=== PATIENT | female | born 1985 | race Caucasian/White ===

== ENCOUNTER → 2018-02-20 11:57 | Outpatient (CLI) | payer OTHER, SELFPAY ==
[2018-02-24 19:47] LABS: Progesterone 13.9 ng/mL
[2018-02-25 20:57] LABS: HCG Quantitative /Beta subunit 18.67 mIU/mL
== END ==
PROVIDERS: PCP Obstetrics & Gynecology; Visit Provider Obstetrics & Gynecology
DX: N96 Recurrent pregnancy loss (principal); N91.2 Amenorrhea, unspecified
CPT/HCPCS: 36415; 84144; 84702

== ENCOUNTER → 2018-02-23 12:46 | Outpatient (CLI) | payer OTHER, SELFPAY ==
[2018-02-25 20:57] LABS: HCG Quantitative /Beta subunit 103.61 mIU/mL
== END ==
PROVIDERS: PCP Obstetrics & Gynecology; Visit Provider Obstetrics & Gynecology
DX: N96 Recurrent pregnancy loss (principal); N91.2 Amenorrhea, unspecified
CPT/HCPCS: 36415; 84702

== ENCOUNTER → 2018-02-27 08:32 | Outpatient (CLI) | payer OTHER, SELFPAY ==
[2018-02-27 08:37] LABS: Bacteria Urine None Seen; RBC Urine None Seen (0-5/HPF); WBC Urine None Seen (0-5/HPF)
[2018-02-27 09:01] LABS: Appearance Urine UA CLEAR; Bilirubin Urine UA NEGATIVE (NEGATIVE); Color Urine UA YELLOW; Glucose Urine UA NEGATIVE (Normal); Ketones Urine UA 1+ (NEGATIVE); Leukocyte Esterase Urine UA NEGATIVE (NEGATIVE); Nitrite Urine UA Negative (Negative); Occult Blood Urine UA NEGATIVE (Negative); Protein Urine UA NEGATIVE (Negative); Urobilinogen Urine UA 0.2 E.U./dL (0.2)
[2018-02-27 09:06] LABS: Add Manual Diff / Slide Review NO; Basophils Percent Auto 0.9 % (0-2); Eosinophils Percent Auto 2.2 % (2-4); Hemoglobin 15.9 g/dL (12.0-16.0); Lymphocytes Percent Auto 37.5 % (25-40); Mean Corpuscular HGB Conc 33.9 % (30-36); Mean Corpuscular Hemoglobin 29.8 PG (26-34); Monocytes Percent Auto 6.9 % (3-14); Neutrophils Absolute Auto 3600 /uL (3000-5900); Neutrophils Percent Auto 52.5 % (50-75); Platelet Count 194 X10^3/uL (150-400); Red Blood Cell Count 5.34 X10^6/uL (4.0-5.2); Red Cell Distribution Width 13.3 % (11.6-14.8)
[2018-02-27 09:09] LABS: Culture Indicated Urine Cult Not Indicated; Urine Comments Microscopic Normal
[2018-02-27 10:07] LABS: HCG Quantitative /Beta subunit 699.35 mIU/mL
[2018-02-27 10:22] LABS: Hepatitis B Surface Antigen NEGATIVE s/c (NEGATIVE); Rubella Antibody IgG 60.3 IU/mL (>15)
[2018-02-28 16:15] LABS: Progesterone 21.6 ng/mL
[2018-03-06 11:06] LABS: Rapid Plasma Reagin NON REACTIVE
== END ==
PROVIDERS: PCP Obstetrics & Gynecology; Visit Provider Obstetrics & Gynecology
DX: Z34.91 Encounter for supervision of normal pregnancy, unspecified, first trimester (principal); N96 Recurrent pregnancy loss
CPT/HCPCS: 36415; 80055; 81001; 84144; 84702; 86787; 86850; 86900; 86901

== ENCOUNTER → 2018-03-11 08:44 | Outpatient (CLI) | payer OTHER, SELFPAY ==
--- NOTE | 2018-03-11 08:45 | DI.US.S_ITS ---
PROCEDURE: US OB <= 14 WEEKS FETUS INDICATIONS: DATES OUTSIDE/PRIOR DATING DATA: Last menstrual period (LMP): 01/25/2018. LMP-based estimated date of delivery (FARZANA): 11/01/2018. First dating scan (date and location): This exam. Estimated date of delivery (FARZANA) from first dating scan: 11/05/18. TECHNIQUE: Real-time scanning was performed of the fetus and maternal pelvic organs, with image documentation. COMPARISON: [facility], , OB COMPLETE 14WKS OR MORE, 06/13/2015, 9:32. [facility], , OB COMPLETE 14WKS OR MORE, 06/06/2015, 9:26. [facility], NON OB TRANSVAGINAL, 05/29/2015, 8:11. [facility], , OB COMPLETE 14WKS OR MORE, 05/17/2015, 9:04. [facility], PELVIC COMPLETE, 09/20/2015, 10:26. FINDINGS: Embryo: There is a single living IUP with the estimated gestational age 5 weeks 6 days. cardiac activity is present with heart rate 97 bpm. Measurement variability in dating: +/- 4 weeks by LMP, +/- 7 days by mean sac diameter (use before 6 weeks gestation if crown-rump length not able to be measured), +/- 5 days by crown-rump length (up to 8 weeks 6 days gestation), +/- 7 days by crown-rump length (up to 13 weeks 6 days gestation). Maternal organs: There is bicornuate uterus. The gestational sac is noted within the right uterine horn. Ovaries are normal. Note is made of a corpus luteal cyst in the right ovary. Limited images through the kidneys demonstrate no hydronephrosis. IMPRESSION: 1. A single living intrauterine gestation with the estimated gestational age of 5 weeks 6 days corresponding to ultrasound FARZANA 11/05/2018. 2. Bicornuate uterus. The gestational sac is noted within the right uterine horn. Dictated by: Santiago Guidry M.D. on 03/11/2018 at 11:39 Approved by: Santiago Guidry M.D. on 03/11/2018 at 11:46
== END ==
PROVIDERS: PCP Obstetrics & Gynecology; Visit Provider Obstetrics & Gynecology
DX: Z34.91 Encounter for supervision of normal pregnancy, unspecified, first trimester (principal); Z3A.01 Less than 8 weeks gestation of pregnancy; N96 Recurrent pregnancy loss
CPT/HCPCS: 76801; 76817

== ENCOUNTER → 2018-04-02 16:21 | Outpatient (CLI) | payer OTHER, SELFPAY ==
[2018-04-02 18:22] LABS: HIV 1 and 2 Antibody NEGATIVE (NEGATIVE); Hep C Virus Ab w/Reflex Quant NEGATIVE s/c (NEGATIVE)
[2018-04-02 19:04] LABS: Thyroid Stimulating Hormone 1.13 uIU/mL (0.47-4.68)
[2018-04-02 19:55] LABS: Free T4, Direct Thyroxine 1.19 ng/dL (0.78-2.19)
[2018-04-04 14:44] LABS: HSV 2 IGG AB < 0.90 index (< 0.90)
== END ==
PROVIDERS: PCP Obstetrics & Gynecology; Visit Provider Obstetrics & Gynecology
DX: Z34.91 Encounter for supervision of normal pregnancy, unspecified, first trimester (principal)
CPT/HCPCS: 36415; 84439; 84443; 86695; 86696; 86703; 86803

== ENCOUNTER → 2018-05-20 15:23 | Outpatient (CLI) | payer OTHER, SELFPAY ==
[2018-05-26 17:03] LABS: AFP, Serum 54.8 ng/mL; Calc Gestational Age 16.1; Est Date Determined by US; Maternal Weight 144 lbs; Number of Fetuses 1; Prev Pregnancies Down Syndrome NOT GIVEN
== END ==
PROVIDERS: PCP Obstetrics & Gynecology; Visit Provider Obstetrics & Gynecology
DX: N96 Recurrent pregnancy loss (principal); Z34.92 Encounter for supervision of normal pregnancy, unspecified, second trimester
CPT/HCPCS: 36415; 82105

== ENCOUNTER → 2018-06-19 12:39 | Outpatient (CLI) | payer OTHER, SELFPAY ==
--- NOTE | 2018-06-19 12:40 | DI.US.S_ITS ---
PROCEDURE: OB >= 14 WEEKS FETUS INDICATIONS: Anatomy Survey OUTSIDE/PRIOR DATING DATA: Last menstrual period (LMP): 01/25/18. LMP-based estimated date of delivery (FARZANA): 11/01/18. First dating scan (date and location): 03/11/18. Estimated date of delivery (FARZANA) from first dating scan: 11/05/18. TECHNIQUE: Real-time scanning was performed of the fetus, with image documentation and biometric measurements. Endovaginal scanning: Performed COMPARISON: [facility], OB <= 14 WEEKS FETUS, 04/21/2018, 14:51. [facility], OB >= 14 WEEKS FETUS, 03/24/2018, 16:57. [facility], OB <= 14 WEEKS FETUS, 03/11/2018, 8:54. FINDINGS: General: A single living intrauterine gestation is present. Presentation: Vertex. Placenta: Placental position is anterior right, without previa. Amniotic fluid index: 15.9 cm, normal range is 5-24 cm. heart rate: 139 beats per minute. Maternal cervical canal: 4.5 cm long. Normal lower limit is 2.5 cm. biometrics: Biparietal diameter: 20 weeks 6 days Head circumference: 20 weeks 4 days Abdominal circumference: 20 weeks 6 days Femur length: 20 weeks 6 days Estimated gestational age from initial scan: 20 weeks 1 day. Composite gestational age from present scan: 20 weeks 6 days Estimated weight and percentile: 378 g; 81st percentile Measurement variability for biometric dating: +/- 7 days from 14 weeks to 15 weeks 6 days gestation, +/- 10 days from 16 weeks to 21 weeks 6 days gestation, +/- 2 weeks from 22 weeks to 27 weeks 6 days gestation, +/- 3 weeks for 28 weeks gestation or later. weight reference: 4500 g or EFW >90/95% is considered macrosomia or large for gestational age. EFW <10% is small for gestational age. EFW 5% or less is considered intra-uterine growth restriction. Anatomic survey: Neuro: Ventricles are non-dilated at less than 10 mm. Cisterna magna is normal at 3-11 mm. Cerebellum is normal in size and morphology. Nuchal skin fold: Normal at less than 6 mm between 14-21 weeks gestational age. Face: Nose and lips, facial profile are normal. Spine: No evidence for spina bifida. Heart: 4-chambered heart is present, with normal ventricular outflow tracts. Diaphragm: Diaphragm is intact. Stomach: Left-sided stomach is present. Kidneys: No hydronephrosis. Normal is less than 5 mm in 2nd trimester, less than 7 mm in 3rd trimester. Cord: 3-vessel cord has orthotopic insertion. Bladder: Normal in size. Extremities: All 4 extremities identified. IMPRESSION: 1. Single living intrauterine fetus with appropriate interval growth. 2. Normal anatomic survey. Dictated by: Mariajose Diamond MD, PhD on 06/19/2018 at 15:01 Approved by: Mariajose Diamond MD, PhD on 06/19/2018 at 15:05
== END ==
PROVIDERS: PCP Obstetrics & Gynecology; Visit Provider Obstetrics & Gynecology
DX: Z34.82 Encounter for supervision of other normal pregnancy, second trimester (principal); Z3A.20 20 weeks gestation of pregnancy
CPT/HCPCS: 76811

== ENCOUNTER 2018-07-13 12:07 | Outpatient (CLI) | payer OTHER, SELFPAY ==
[2018-07-13] MEDS: NIFEdipine 30 MG TAB ER PO (13:35)
[2018-07-13] MEDS: NIFEdipine 10 MG CAPSULE PO (13:35)
== END 2018-07-13 13:45 | disposition home or self-care (01) ==
LOC: LABOR 13:53 → OB 07-14 07:44
PROVIDERS: PCP Obstetrics & Gynecology; Visit Provider Obstetrics & Gynecology
DX: Z34.82 Encounter for supervision of other normal pregnancy, second trimester (principal); Z3A.24 24 weeks gestation of pregnancy
CPT/HCPCS: 59050; G0378; G0379

== ENCOUNTER → 2018-07-17 16:10 | Outpatient (CLI) | payer OTHER, SELFPAY ==
[2018-07-17 16:48] LABS: Fetal Fibronectin Negative
== END ==
PROVIDERS: PCP Obstetrics & Gynecology; Visit Provider Specialist
DX: O34.03 Maternal care for unspecified congenital malformation of uterus, third trimester (principal); Q51.3 Bicornate uterus
CPT/HCPCS: 82731

== ENCOUNTER → 2018-07-25 08:30 | Outpatient (CLI) | payer OTHER, SELFPAY ==
[2018-07-25 09:59] LABS: Hematocrit 38.8 % (36-46)
[2018-07-25 10:26] LABS: GTT (PREG) 1 Hour PP 50gm Dose 73 mg/dL (76-139)
== END ==
PROVIDERS: PCP Obstetrics & Gynecology; Visit Provider Obstetrics & Gynecology
DX: Z34.02 Encounter for supervision of normal first pregnancy, second trimester (principal); Z34.82 Encounter for supervision of other normal pregnancy, second trimester; Z3A.24 24 weeks gestation of pregnancy
CPT/HCPCS: 36415; 82950; 85014; 85018

== ENCOUNTER → 2018-08-17 13:38 | Outpatient (CLI) | payer OTHER, SELFPAY ==
[2018-08-17 14:29] LABS: Fetal Fibronectin Negative
== END ==
PROVIDERS: PCP Obstetrics & Gynecology; Visit Provider Obstetrics & Gynecology
DX: Z87.51 Personal history of pre-term labor (principal)
CPT/HCPCS: 82731

== ENCOUNTER 2018-08-29 18:47 | Outpatient (CLI) | payer OTHER, SELFPAY ==
[2018-08-29] MEDS: NIFEdipine 30 MG TAB ER PO (19:45)
== END 2018-08-29 19:45 | disposition home or self-care (01) ==
LOC: OB 09-01 14:27
PROVIDERS: PCP Obstetrics & Gynecology; Visit Provider Obstetrics & Gynecology
DX: Z34.83 Encounter for supervision of other normal pregnancy, third trimester (principal); Z3A.30 30 weeks gestation of pregnancy
CPT/HCPCS: 59025; 84112; G0378; G0379

== ENCOUNTER → 2018-08-31 13:50 | Outpatient (CLI) | payer OTHER, SELFPAY ==
[2018-08-31 16:36] LABS: Fetal Fibronectin Negative
[2018-09-16 12:37] LABS: Fetal Fibronectin Negative
== END ==
PROVIDERS: PCP Obstetrics & Gynecology; Visit Provider Obstetrics & Gynecology
DX: Z34.83 Encounter for supervision of other normal pregnancy, third trimester (principal); Z3A.31 31 weeks gestation of pregnancy
CPT/HCPCS: 82731

== ENCOUNTER 2018-09-19 14:35 | Observation (INO) | payer OTHER, SELFPAY ==
[2018-09-19] MEDS: TERBUTALINE 1 MG/ML VIAL 0.25 MG SUBCUT ×2 (16:05→18:09)
--- NOTE | 2018-09-19 20:24 | PM.OBTRLD ---
Visit Information Visit Information Date of evaluation: 09/19/18 Primary OB Provider: Fiona Craven Reason for Evaluation: Yes pre-term labor Comments/Additional reasons for admission: Patient is a 33-year-old who presented with contractions. She is on nifedipine 30 XL 3 times a day. She took 2 doses today as well as 2 doses of fast acting nifedipine. Contractions are about every 5 min. PFSH Medical History Kidney infection (Chronic) Infertility (Resolved) Surgical History History of third molar tooth extraction (Resolved 2008) Status post delivery (Resolved 07/06/15) Status post dilation and curettage (Resolved 2013) Status post dilation and curettage (Resolved 09/25/15) Status post exploratory laparotomy (Resolved 2005) Evaluation Evaluation Baseline heart rate: 140 Variability: Moderate (11-25) monitor accelerations: Present monitor decelerations: Absent Contraction Frequency (minutes): 5 Uterine Contraction Intensity: Moderate Category of Tracing: I Cervical dilation (cm): 0 Diagnosis, Plan/Disposition Final Diagnosis (1) uterine contractions in third trimester, antepartum: Current Visit: Yes Status: Acute Plan/Disposition Plan: Assessment: 33-year-old at 34 weeks gestation with contractions Plan: Patient received 2 doses of subcu terbutaline approximately 1 hr apart. After the 2nd dose contractions stopped. Patient discharged home with instructions for modified bedrest. Follow-up on September 30 as scheduled OB Disposition: home
== END 2018-09-19 19:30 | disposition home or self-care (01) ==
LOC: AC 14:45 → LABOR 14:46 → AC 14:55 → LABOR 15:04
PROVIDERS: Admitting Provider Obstetrics & Gynecology; PCP Obstetrics & Gynecology; Visit Provider Obstetrics & Gynecology
DX: O60.03 Preterm labor without delivery, third trimester (principal); Z3A.34 34 weeks gestation of pregnancy
CPT/HCPCS: 59025; 59050; 96372; G0378; G0379

== ENCOUNTER 2018-09-21 10:25 | Observation (INO) | payer OTHER, SELFPAY ==
--- NOTE | 2018-09-21 11:06 | DI.US.S_ITS ---
PROCEDURE: US OB LIMITED INDICATIONS: CONTRACTIONS AT 34 WEEKS OUTSIDE/PRIOR DATING DATA: Last menstrual period (LMP): 01/25/18. LMP-based estimated date of delivery (FARZANA): 11/01/18. First dating scan (date and location): 03/11/18. Estimated date of delivery (FARZANA) from first dating scan: 11/05/18. TECHNIQUE: Real-time scanning was performed of the fetus, with image documentation. Endovaginal imaging of the cervix was also performed. COMPARISON: [facility], US, US OB >= 14 WEEKS FETUS, 09/16/2018, 11:38. FINDINGS: A single living intrauterine gestation is present. Presentation: Breech Placenta: Placental position is anterior Amniotic fluid index: 22.8 cm, normal range is 5-24 cm. heart rate: 149 beats per minute. Maternal cervical canal: 5.3 cm in length. The cervix is closed. There is no funneling. No fluid is contained within the endocervical canal. Estimated gestational age from initial scan: 33 weeks 4 days. IMPRESSION: 1. Single live intrauterine . 2. Breech position. 3. Cervix is closed and normal in length. Dictated by: Angelo Karimi M.D. on 09/21/2018 at 10:56 Approved by: Angelo Karimi M.D. on 09/21/2018 at 11:04
[2018-09-21] MEDS: TERBUTALINE 1 MG/ML VIAL 0.25 MG SUBCUT (11:55)
== END 2018-09-21 12:33 | disposition home or self-care (01) ==
LOC: LABOR 10:27
PROVIDERS: Admitting Provider Obstetrics & Gynecology; PCP Obstetrics & Gynecology; Visit Provider Obstetrics & Gynecology
DX: O60.03 Preterm labor without delivery, third trimester (principal); O32.1XX0 Maternal care for breech presentation, not applicable or unspecified; Z3A.34 34 weeks gestation of pregnancy
CPT/HCPCS: 59025; 59050; 76815; 76817; 96372; G0378; G0379

== ENCOUNTER 2018-09-28 15:47 | Outpatient (CLI) | payer OTHER, SELFPAY | END 2018-09-28 16:31 | disposition home or self-care (01) | LOC: OB 09-30 12:43 | PROVIDERS: PCP Obstetrics & Gynecology; Visit Provider Obstetrics & Gynecology | DX: O36.8130 Decreased fetal movements, third trimester, not applicable or unspecified (principal); Z3A.35 35 weeks gestation of pregnancy; O26.23 Pregnancy care for patient with recurrent pregnancy loss, third trimester | CPT/HCPCS: 59025; G0378; G0379 ==

== ENCOUNTER → 2018-09-30 17:01 | Outpatient (CLI) | payer OTHER, SELFPAY ==
[2018-10-01 15:19] LABS: Strep Grp B PCR POS for Grp B Strep
== END ==
PROVIDERS: PCP Obstetrics & Gynecology; Visit Provider Obstetrics & Gynecology
DX: Z34.93 Encounter for supervision of normal pregnancy, unspecified, third trimester (principal); Z3A.35 35 weeks gestation of pregnancy
CPT/HCPCS: 87653

== ENCOUNTER 2018-10-03 12:47 | Observation (INO) | payer OTHER, SELFPAY ==
[2018-10-03] MEDS: LACTATED RINGERS 1,000 ML 1000 ML IV (13:45)
[2018-10-03 14:39] LABS: Bacteria Urine None Seen; RBC Urine None Seen (0-5/HPF); WBC Urine None Seen (0-5/HPF)
[2018-10-03 14:41] LABS: Appearance Urine UA CLEAR; Bilirubin Urine UA NEGATIVE (NEGATIVE); Color Urine UA YELLOW; Glucose Urine UA NEGATIVE (Negative); Ketones Urine UA NEGATIVE (NEGATIVE); Leukocyte Esterase Urine UA NEGATIVE (NEGATIVE); Nitrite Urine UA NEGATIVE (Negative); Occult Blood Urine UA NEGATIVE (Negative); Protein Urine UA NEGATIVE (Negative); Specific Gravity Urine UA <=1.005 (1.000-1.035); Urobilinogen Urine UA 0.2 E.U./dL (0.2); pH Urine UA 6.5 (4.5-8.0)
--- NOTE | 2018-10-03 14:57 | PM.OBTRLD ---
Visit Information Visit Information Date of evaluation: 10/03/18 Primary OB Provider: Fiona Craven On-call OB Provider: Blossom Calvillo Reason for Evaluation: Yes rule out labor Comments/Additional reasons for admission: The pt presented with regular painful contractions. She reports having contractions starting around 8am that had been increasing in intensity and frequency throughout the day. They were every 5 minutes, and 8/10 on the pain scale prior to presentation. She denies any vaginal bleeding or LOF. She continues to feel baby move regularly. The pt took her short-acting Nifedipine x2 at 11:30am due to the persistent contractions, in addition to her afternoon dose of long-acting Nifedipine. This did not seem to help at all. Pt denies any dysuria, irregular vaginal discharge. PFSH Medical History Kidney infection (Chronic) Infertility (Resolved) Surgical History History of third molar tooth extraction (Resolved 2008) Status post delivery (Resolved 07/06/15) Status post dilation and curettage (Resolved 2013) Status post dilation and curettage (Resolved 09/25/15) Status post exploratory laparotomy (Resolved 2005) Exam Narrative Exam Narrative: Gen: NAD, laying in bed, able to talk through contractions with heavy breathing CV: RRR, no murmurs Resp: clear to auscultation bilaterally Abd: gravid, nondistended, appropriately tender Ext: trace edema Evaluation Evaluation Baseline heart rate: 150 Variability: Moderate (11-25) monitor accelerations: Present monitor decelerations: Absent Contraction Frequency (minutes): 5 Uterine Contraction Intensity: Strong/Firm Category of Tracing: I Cervical dilation (cm): 0 Cervical effacement (%): 25 station: -3 Comments: Fingertip on exam Diagnosis, Plan/Disposition Final Diagnosis (1) uterine contractions in third trimester, antepartum: Current Visit: No Status: Acute (2) 35 weeks gestation of : Current Visit: No Status: Acute (3) Bicornuate uterus: Current Visit: No Status: None Plan/Disposition Plan: Pt with strong, palpable contractions. Received 1L of IVF without any improvement in contractions, and they progressively increased in frequency and intensity. U/A without evidence UTI. Due to status, Terbutaline 0.25mg subq given x2. Initially with resolution of contractions, however only lasting for approximately 30 minutes with each dose, then with return of contractions. 10mg of subcutaneous morphine then given. Pt with significant pain relief, and able to sleep. Gradually, over a couple hours, the pts contractions spaced back out again to every 6-8 minutes. The pt felt much less pain with the contractions as well. Cervical exam showed no change from fingertip, thick, and quite posterior. The pt will be discharged home, with instructions to continue her home Nifedipine and return if contractions strengthening again. OB Disposition: home
[2018-10-03] MEDS: TERBUTALINE 1 MG/ML VIAL 0.25 MG SUBCUT ×2 (15:00→15:35)
[2018-10-03 15:03] LABS: Culture Indicated Urine Cult Not Indicated; Urine Comments Microscopic Normal
[2018-10-03] MEDS: LACTATED RINGERS 1,000 ML 250 ML IV ×2 (15:40→19:51)
[2018-10-03] MEDS: MORPHINE 10 MG/ML INJ IM (17:03)
[2018-10-03] MEDS: NIFEdipine 30 MG TAB ER PO (19:48)
[2018-10-03 21:48] VITALS: BP 105/57; PULSE 89; RESP 14; TEMP 36.7
== END 2018-10-03 21:50 | disposition home or self-care (01) ==
PROVIDERS: Family Medicine; Admitting Provider Obstetrics & Gynecology; PCP Obstetrics & Gynecology; Visit Provider Obstetrics & Gynecology
DX: O60.03 Preterm labor without delivery, third trimester (principal); Z3A.35 35 weeks gestation of pregnancy; Q51.3 Bicornate uterus; O26.23 Pregnancy care for patient with recurrent pregnancy loss, third trimester
CPT/HCPCS: 59025; 59050; 81001; 96360; 96372; G0378; G0379; J2270

== ENCOUNTER 2018-10-04 01:23 | Inpatient (IN) | payer OTHER, SELFPAY ==
[2018-10-04] MEDS: TERBUTALINE 1 MG/ML VIAL 0.25 MG SUBCUT (02:34)
[2018-10-04 03:37] VITALS: TEMP 36.6
[2018-10-04] MEDS: ACETAMINOPHEN 325 MG TABLET 650 MG PO (03:37)
[2018-10-04 03:41] LABS: Add Manual Diff / Slide Review NO; Basophils Absolute Auto 0 /uL (0-100); Basophils Percent Auto 0.2 % (0-2); Eosinophils Absolute Auto 0 /uL (0-450); Eosinophils Percent Auto 0.1 % (2-4); Hematocrit 35.5 % (36-46); Hemoglobin 11.4 g/dL (12.0-16.0); Lymphocytes Absolute Auto 2800 /uL (1100-4500); Lymphocytes Percent Auto 14.5 % (25-40); Mean Corpuscular HGB Conc 32.3 % (30-36); Mean Corpuscular Hemoglobin 24.5 PG (26-34); Mean Corpuscular Volume 76.1 fL (80-100); Monocytes Absolute Auto 1100 /uL (0-900); Monocytes Percent Auto 5.8 % (3-14); Neutrophils Absolute Auto 15200 /uL (1500-7000); Neutrophils Percent Auto 79.4 % (50-75); Platelet Count 201 X10^3/uL (150-400); Red Blood Cell Count 4.66 X10^6/uL (4.0-5.2); Red Cell Distribution Width 15.5 % (11.6-14.8); White Blood Cell Count 19.1 X10^3/uL (4.5-11.0)
[2018-10-04] MEDS: NIFEdipine 30 MG TAB ER PO (07:42)
[2018-10-04] MEDS: NIFEdipine 10 MG CAPSULE PO (07:45)
[2018-10-04] MEDS: LACTATED RINGERS 1,000 ML 1000 ML IV (09:44)
--- NOTE | 2018-10-04 12:22 | PM.PREOP ---
Pre-operative Note Interval Note History & Physical reviewed/Exam performed by Physician: Yes Changes to H&P: No ASA Class (for procedural sedation): II
--- NOTE | 2018-10-04 12:59 | P.HPOB_ITS ---
OB HPI Date/Time Date of admission: 10/04/18 Date Patient Seen: 10/04/18 Time Patient Seen: 12:48 History of Present Condition Chief complaint: OBS : 7 Para: 1 Estimated Date of Delivery: 11/01/18 Estimated Gestational Age (weeks): 36 Narrative: Amnada Ferguson is a 33 year old female at 36 weeks gestation who presented several times over the last few days with contractions. Most recent time was last night. Cervix has changed and contractions have gotten stronger. Tocolytics seem to work for a short time and then contractions return. She has had a previous c section. Indications Operative indications ( section): contractions Other reason(s) for admission: Cervical change History of Present care: good care, initiated at week # (8) and number of visits (11) Dating criteria: LMP confirmed by 1st trimester US Ultrasounds: normal 1st trimester US and normal mid trimester US Obstetrical complications: labor Medical complications: genitourinary (Bicornuate uterus) Preadmission Labs Blood type: B (+) positive -: Antibody screen: negative, GBS status: positive, HBsAG: negative, HIV: negative, HSV 1: positive, HSV 2: negative and RPR/VDLR: negative -: Chlamydia screen: not detected and Gonorrhea screen: not detected -: Rubella: immune and Varicella: immune HCT: 38.8 HCAB: negative PAP: Normal Cell-free DNA: Normal, normal AFP Urine: Negative 1 hr GTT: 73 Prior (ies) History: Previous C section due to breech at 37 weeks for SROM 5 SAB's Evaluation Evaluation Baseline heart rate: 140 Variability: Moderate (11-25) monitor accelerations: Present monitor decelerations: Absent Contraction Frequency (minutes): 5 Uterine Contraction Intensity: Strong/Firm Category of Tracing: I Cervical dilation (cm): 1 Cervical effacement (%): 90 station: 0 Laboratory results: Laboratory Tests 10/04/18 10/04/18 01:40 01:40 WBC 19.1 H RBC 4.66 Hgb 11.4 L Hct 35.5 L MCV 76.1 L MCH 24.5 L MCHC 32.3 RDW 15.5 H Plt Count 201 Neut % (Auto) 79.4 H Lymph % (Auto) 14.5 L [place] % (Auto) 5.8 Eos % (Auto) 0.1 L Baso % (Auto) 0.2 Neut # (Auto) 60228 H Lymph # (Auto) 2800 [place] # (Auto) 1100 H Eos # (Auto) 0 Baso # (Auto) 0 Blood Type B Positive Antibody Screen Negative PFSH Medical History Kidney infection (Chronic) Infertility (Resolved) Surgical History History of third molar tooth extraction (Resolved 2008) Status post delivery (Resolved 07/06/15) Status post dilation and curettage (Resolved 2013) Status post dilation and curettage (Resolved 09/25/15) Status post exploratory laparotomy (Resolved 2005) Meds Home Medications Medication Instructions Recorded Confirmed Type norethindrone-e.estradiol-iron 1 tab PO Q DAY #3 pac 03/31/17 Rx [ FE .02/18 ()] medroxyprogesterone 10 mg PO SEE INSTRUCTIONS #7 tab 11/17/17 Rx CMP Progesterone 200 mg VAG .qd #30 tab 03/02/18 Rx levothyroxine 50 mcg tablet 50 mcg PO QDAY #90 tab 04/03/18 10/04/18 Rx codeine 10 mg-guaifenesin 100 mg/5 10 ml PO Q4-6H PRN #118 ml 06/17/18 Rx mL oral liquid nifedipine ER 30 mg 30 mg PO TID #90 tab 08/24/18 10/04/18 Rx tablet,extended release nifedipine 10 mg capsule 10 mg PO .COMPLEX #30 cap 08/28/18 10/04/18 Rx Allergies Allergy/AdvReac Type Severity Reaction Status Date / Time No Known Drug Allergies Allergy Verified 08/29/18 19:56 Exam Vital Signs (past 8 hours): Generally: Moderate distress secondary to contractions Lungs: Clear to auscultation bilateral Cardiovascular: Regular rate and rhythm Fundal height: 36 cm Extremities: Negative Homans, no edema Objective Labs Result Diagrams: 10/04/18 01:40 Labs: Laboratory Results - last 24 hr 10/04/18 10/04/18 01:40 01:40 WBC 19.1 H RBC 4.66 Hgb 11.4 L Hct 35.5 L MCV 76.1 L MCH 24.5 L MCHC 32.3 RDW 15.5 H Plt Count 201 Neut % (Auto) 79.4 H Lymph % (Auto) 14.5 L [place] % (Auto) 5.8 Eos % (Auto) 0.1 L Baso % (Auto) 0.2 Neut # (Auto) 67879 H Lymph # (Auto) 2800 [place] # (Auto) 1100 H Eos # (Auto) 0 Baso # (Auto) 0 Blood Type B Positive Antibody Screen Negative Assessment and Plan (1) 36 weeks gestation of : Current visit: Yes Status: Acute (2) Bicornuate uterus: Current visit: Yes Status: Acute (3) Breech presentation: Current visit: Yes Status: Acute (4) labor in third trimester: Current visit: Yes Status: Acute Plan: Plan: Assessment: 33-year-old 7 para 1 at 36 weeks gestation with a bicornuate uterus, breech presentation, previous section, and labor resulting in cervical change Patient has failed tocolytics Plan: Repeat low-transverse section The risks, benefits, and alternatives to the procedure were explained to the patient. The risks including bleeding, infection, injury to the bowel, bladder , or ureters. She understands these risks and agrees to proceed. A full PAR-Q was held and consent form was signed.
[2018-10-04] MEDS: CEFAZOLIN 2 GM/100 ML FROZ.PIGGY IV (13:10)
[2018-10-04] MEDS: LACTATED RINGERS 1,000 ML 100 ML IV (13:15)
--- NOTE | 2018-10-04 13:29 | SUR.OPER ---
Supine on Padded OR bed, head on pillow, safety belt at thigh, arms secured on padded arm boards at <90 degrees abduction. Bump under right buttock. Legs uncrossed with pillow under knees, gel pad to heels, tape over blanket to lower legs.
[2018-10-04] MEDS: ACETAMINOPHEN IV 1,000 MG/100 ML VIAL 400 MG IV (13:40)
--- NOTE | 2018-10-04 13:44 | SUR.OPER ---
VIABLE MALE INFANT DELIVERED AT OB 1336. CORD BLOOD AND PLACENTA IN LABELED CONTAINERS TO OB WITH RN
--- NOTE | 2018-10-04 14:16 | PM.GYNOP.1 ---
Operative Date/Time/Diagnoses Date of procedure: 10/04/18 Time of procedure: 14:17 Pre-op diagnosis: Intrauterine at 37 weeks gestation labor with cervical change Previous section Bicornuate uterus Breech presentation Post-op diagnosis: same Procedure: Procedures Operation Date: 10/04/18 13:25 Actual Procedures Side Surgeon p Section Fiona Craven MD Indications: 37 weeks gestation labor with cervical change Bicornuate uterus Breech presentation Previous section Surgeon: Fiona Craven Consulting Networking Engineer: Blossom Calvillo Anesthesia Type: Spinal Operative Notes Findings: Live male in single footling breech presentation Normal tubes and ovaries Bicornuate uterus Fascial adhesions Closure Type: primary Specimen(s): other (Cord blood, placenta) Applied: catheter Estimated blood loss (mL): 500 Blood products transfused: none Procedure in detail: The patient was taken to the operating room where she was placed in the seated position. Spinal anesthesia was administered. The patient was then placed in the dorsal supine position with a leftward tilt. She was prepped and draped in the usual sterile fashion. A timeout was performed. After spinal analgesia was found to be adequate, a Pfannenstiel skin incision was made through the previous incision and carried through to the underlying layer fascia. The fascia was nicked in the midline, and the incision extended bilaterally with the Wade scissors. The superior aspect of the fascial incision was grasped with a Paulette clamps, elevated, and the underlying rectus muscles dissected off sharply and bluntly. Attention was then turned to the inferior aspect of this incision which in a similar fashion was grasped with a [employer] clamps, elevated, and the underlying rectus muscles dissected off sharply and bluntly. The rectus muscles were in the midline. The peritoneum was identified, grasped between 2 hemostats, and entered sharply with the Metzenbaum scissors. This incision was extended superiorly and inferiorly with good visualization of the bladder. The bladder blade was inserted. The vesicouterine peritoneum was identified, grasped with the pickup, and entered sharply with the Metzenbaum scissors. This incision was extended bilaterally, and the bladder flap was created digitally. The bladder blade was reinserted. The lower uterine segment was incised in a transverse fashion with the scalpel. Upon entering the amniotic sac there was a large amount of clear amniotic fluid. The was delivered by total breech extraction. The nose and mouth were suctioned with bulb suction. The cord was double clamped and cut. The was handed off to waiting RN and RT. The placenta was delivered manually. The uterus was cleared of all clots and debris. The uterine incision was repaired with #1 chromic in a running interlocking fashion, and a second layer the same suture was used for an imbricating layer. Hemostasis was achieved. The tubes and ovaries were examined and were found to be normal. The gutters were cleared of all clots and debris. The bladder flap was reapproximated using 2-0 Vicryl in a running fashion. The parietal peritoneum was closed using 2-0 Vicryl in a running fashion. The fascia was reapproximated using 0 Vicryl in a running fashion. The subcutaneous layer was copiously irrigated with warm normal saline. 5 simple interrupted sutures of 3-0 Vicryl were placed to reapproximate the subcutaneous layer. The skin was closed with 4-0 undyed Vicryl in a subcuticular fashion. Steri-Strips were placed. An Aquacell dressing was placed. The uterus was expressed of a small amount of old blood. Sponge, lap, and instrument counts were correct x-2. The patient tolerated the procedure well, and was taken to PACU in stable condition. Complications: none Post-operative Condition: stable Disposition: PACU Plan for aftercare: To Center after recovery
[2018-10-04] MEDS: ONDANSETRON 4 MG/2 ML INJ IV (14:20)
[2018-10-04 14:21] VITALS: BP 102/68; PULSE 82; RESP 16; TEMP 36.3; O2SAT 97
[2018-10-04 14:26] VITALS: BP 102/64; PULSE 82; RESP 16; O2SAT 97
[2018-10-04] MEDS: METOCLOPRAMIDE 10 MG/2 ML INJ IV (15:53)
[2018-10-04 20:25] VITALS: TEMP 36.6
[2018-10-04] MEDS: KETOROLAC 30 MG/ML VIAL IV (20:25)
[2018-10-05] MEDS: OXYCODONE/ACETAMINOPHEN 5/325 TABLET 1 TAB PO ×5 (02:39→21:41)
[2018-10-05] MEDS: KETOROLAC 30 MG/ML VIAL IV ×2 (02:39→08:43)
[2018-10-05] MEDS: LEVOTHYROXINE 50 MCG TABLET PO (05:59)
[2018-10-05 06:41] LABS: Hematocrit 30.9 % (36-46); Hemoglobin 10.1 g/dL (12.0-16.0)
[2018-10-05] MEDS: DOCUSATE 250 MG CAPSULE PO (08:43)
[2018-10-05] MEDS: PRENATAL VIT,CALC/IRON/FOLIC 1 TABLET 1 TAB PO (08:43)
[2018-10-05] MEDS: IBUPROFEN 600 MG TABLET PO ×2 (15:48→21:41)
--- NOTE | 2018-10-05 19:01 | PM.OBPN.1 ---
Subjective - OB Interval history: Patient is postop day # 1 status post repeat section at 36 weeks for labor, bicornuate uterus, and persistent breech presentation. Patient comments: no complaints, pain well controlled, tolerating diet and other (Voiding without the catheter) [place] baby status: doing well, nursing well and other (Low blood sugar issue has resolved) [place] feeding status: exclusively breast feeding Date Patient Seen: 10/05/18 Time Patient Seen: 19:02 Exam Vital Signs (past 8 hours): Oxygen Delivery Method Room Air Narrative Exam Narrative: Generally: Patient is sitting up in bed, nursing infant, no acute distress Lungs: Clear to auscultation bilaterally Cardiovascular: Regular rate and rhythm Abdomen: Soft, good bowel sounds Fundus: Firm at U -2 Incision: Clean dry and intact with Aquacel dressing Extremities: Negative Homans, no edema Objective Labs Result Diagrams: 10/05/18 06:20 Labs: Laboratory Results - last 24 hr 10/05/18 06:20 Hgb 10.1 L Hct 30.9 L Assessment & Plan (1) 36 weeks gestation of : Status: Acute Current Visit: Yes (2) Bicornuate uterus: Status: Acute Current Visit: Yes (3) Breech presentation: Status: Acute Current Visit: Yes (4) labor in third trimester: Status: Acute Current Visit: Yes (5) Status post repeat low transverse section: Status: Acute Assessment and plan: Assessment: Postop day # 1 status post repeat low-transverse section, doing well. Plan: Continue routine postop care Current Visit: Yes Plan day: 1 plan OB: routine postop care Time Spent With Patient Total time spent is greater than 50% in coordination of care (as documented) at patient's floor/unit and/or counseling patient: 15-24 minutes
--- NOTE | 2018-10-05 19:04 | P.PNOB_ITS ---
Subjective - OB Interval history: Patient is postop day # 1 status post repeat section at 36 weeks for labor, bicornuate uterus, and persistent breech presentation. Patient comments: no complaints, pain well controlled, tolerating diet and other (Voiding without the catheter) [place] baby status: doing well, nursing well and other (Low blood sugar issue has resolved) [place] feeding status: exclusively breast feeding Date Patient Seen: 10/05/18 Time Patient Seen: 19:02 Exam Vital Signs (past 8 hours): Oxygen Delivery Method Room Air Narrative Exam Narrative: Generally: Patient is sitting up in bed, nursing infant, no acute distress Lungs: Clear to auscultation bilaterally Cardiovascular: Regular rate and rhythm Abdomen: Soft, good bowel sounds Fundus: Firm at U -2 Incision: Clean dry and intact with Aquacel dressing Extremities: Negative Homans, no edema Objective Labs Result Diagrams: 10/05/18 06:20 Labs: Laboratory Results - last 24 hr 10/05/18 06:20 Hgb 10.1 L Hct 30.9 L Assessment & Plan (1) 36 weeks gestation of : Status: Acute Current Visit: Yes (2) Bicornuate uterus: Status: Acute Current Visit: Yes (3) Breech presentation: Status: Acute Current Visit: Yes (4) labor in third trimester: Status: Acute Current Visit: Yes (5) Status post repeat low transverse section: Status: Acute Assessment and plan: Assessment: Postop day # 1 status post repeat low-transverse section, doing well. Plan: Continue routine postop care Current Visit: Yes Plan day: 1 plan OB: routine postop care Time Spent With Patient Total time spent is greater than 50% in coordination of care (as documented) at patient's floor/unit and/or counseling patient: 15-24 minutes
[2018-10-06] MEDS: OXYCODONE/ACETAMINOPHEN 5/325 TABLET 1 TAB PO ×3 (01:28→16:06)
[2018-10-06] MEDS: IBUPROFEN 600 MG TABLET PO ×3 (03:29→16:06)
[2018-10-06] MEDS: LEVOTHYROXINE 50 MCG TABLET PO (07:26)
[2018-10-06] MEDS: PRENATAL VIT,CALC/IRON/FOLIC 1 TABLET 1 TAB PO (09:34)
[2018-10-06] MEDS: DOCUSATE 250 MG CAPSULE PO (09:34)
[2018-10-06 10:55] VITALS: BP 102/64; PULSE 82; RESP 16; TEMP 36.6
--- NOTE | 2018-10-22 15:03 | PM.OBDS.1 ---
Discharge Providers Date of admission: 10/04/18 01:23 Primary care physician: Fiona Craven MD Consults: 10/04/18 15:47 Consult to [facility] Routine Comment: Discharge provider: Fiona Craven MD Discharge Date: 10/06/18 Summary Date Patient Seen: 10/06/18 Time Patient Seen: 13:30 Hospital Course: Patient is a 33-year-old 7 para 2 who presented in labor on 10/04/2018. She was at 36 weeks gestation. She had a previous section. Her baby was in the breech presentation. She underwent a repeat section on 10/04/2018. Her postoperative course was unremarkable and she was discharged home on 10/06/2018. She was tolerating a diet, ambulating, voiding without catheter, and tolerating pain pills. Peripartum Data Infant Delivery Method: Section (Repeat) Laceration description: None Episiotomy description: None Procedures: Repeat low-transverse section Spinal anesthesia complications: none Discharge Diagnosis (1) 36 weeks gestation of : Status: Acute (2) Bicornuate uterus: Status: Acute (3) Breech presentation: Status: Acute (4) labor in third trimester: Status: Acute (5) Status post repeat low transverse section: Status: Acute Status at Discharge Functional status at discharge: independent ambulation Overall status at discharge: patient is progressing back to baseline Time Spent with Patient Total time spent providing and/or coordinating discharge services: Less than 30 minutes Objective Labs Result Diagrams: 10/05/18 06:20 Discharge Plan Discharge Plan Patient Disposition: Home Discharge comment: Call with fever, chills, redness or drainage around incision or bleeding vaginally more than a pad in an hour Discharge Med Rec/Prescriptions Prescriptions: New oxycodone-acetaminophen [Percocet] 5-325 mg tablet 2 tab PO Q4-6H PRN (Reason: pain) Qty: 30 RF: 0 Continue levothyroxine [Levoxyl] 50 mcg tablet 50 mcg PO QDAY Qty: 90 RF: 3 Follow up/Referrals: Fiona Craven MD [Primary Care Provider] - 10/13/18 12:00 am (Appointment with on Friday, October 13 at 10:15 am) Provider Discharge Instructions Diet: Diet as Tolerated Activity: No heavy lifting No intercourse Skin/Wound/Dressing Care Report to your healthcare provider any signs of infection, such as:: chills, fever, increased pain, unusual drainage and unusual redness Dressing: Do not remove Visit Report/Discharge Packet Instructions: DI for Visit Report Forms: Stroke Signs & Symptoms Discharge Data Primary Care Provider: Fiona Craven Attending Provider: Blossom Calvillo Admit Date/Time: 10/04/18 01:23 Discharges patient from system. Discharge Date/Time: 10/06/18 17:37
== END 2018-10-06 17:37 | disposition home or self-care (01) | DRG 788 ==
PROVIDERS: Admitting Provider Family Medicine; PCP Obstetrics & Gynecology; Visit Provider Family Medicine
PROC: 10D00Z1 Extraction of Products of Conception, Low, Open Approach (ICD-10-PCS; CPT 59514; principal; 2018-10-04 13:25)
DX: O60.14X0 Preterm labor third trimester with preterm delivery third trimester, not applicable or unspecified (principal); Z3A.36 36 weeks gestation of pregnancy; Z37.0 Single live birth; O34.03 Maternal care for unspecified congenital malformation of uterus, third trimester; Q51.3 Bicornate uterus; O34.219 Maternal care for unspecified type scar from previous cesarean delivery; O32.1XX0 Maternal care for breech presentation, not applicable or unspecified
CPT/HCPCS: 36415; 59025; 59050; 59510; 59514; 85014; 85018; 85025; 86850; 86900; 86901; G0379; J0131; J0690; J1885; J2274; J2405; J2590; J2765; J3010

== ENCOUNTER → 2018-12-19 11:02 | Outpatient (CLI) | payer OTHER, SELFPAY ==
[2018-12-19 12:39] LABS: Thyroid Stimulating Hormone 0.57 uIU/mL (0.47-4.68)
== END ==
PROVIDERS: PCP Obstetrics & Gynecology; Visit Provider Obstetrics & Gynecology
DX: E03.9 Hypothyroidism, unspecified (principal)
CPT/HCPCS: 36415; 84439; 84443

== ENCOUNTER → 2020-06-16 12:35 | Outpatient (CLI) | payer OTHER, SELFPAY ==
[2020-06-16 14:41] LABS: Free T4, Direct Thyroxine 1.09 ng/dL (0.78-2.19)
[2020-06-16 14:55] LABS: Thyroid Stimulating Hormone 0.806 uIU/mL (0.47-4.68)
== END ==
PROVIDERS: Referring Provider Obstetrics & Gynecology; Visit Provider Obstetrics & Gynecology
DX: E03.9 Hypothyroidism, unspecified (principal)
CPT/HCPCS: 36415; 84439; 84443

== ENCOUNTER → 2021-05-19 10:45 | Outpatient (CLI) | payer OTHER, SELFPAY ==
[2021-05-19 13:51] LABS: Free T4, Direct Thyroxine 1.17 ng/dL (0.78-2.19)
[2021-05-19 14:04] LABS: Thyroid Stimulating Hormone 0.904 uIU/mL (0.47-4.68)
== END ==
PROVIDERS: PCP Physician Assistant Medical; Referring Provider Obstetrics & Gynecology; Visit Provider Obstetrics & Gynecology
DX: E03.9 Hypothyroidism, unspecified (principal)
CPT/HCPCS: 36415; 84439; 84443